=== PATIENT | male | born 1995 ===

== ENCOUNTER 2016-09-16 11:33 | Emergency (ER) | payer BC ==
[2016-09-16 11:47] VITALS: BP 143/75; PULSE 102; RESP 20; TEMP 101; O2SAT 98
--- NOTE | 2016-09-16 12:55 | ED PDOC ---
HPI: CCC, URI, Sore Throat Time Seen by Provider: 09/16/16 12:53 Chief Complaint (Nursing): Cough, Cold, Congestion Chief Complaint (Provider): cough History Per: Patient History/Exam Limitations: no limitations Onset/Duration Of Symptoms: Days (4) Current Symptoms Are (Timing): Still Present Location Of Pain: Ear(s), Throat, Sinus/es, Diffuse Myalgias, Headache Associated Symptoms: Fever, Chills, Sore Throat, Cough, Sinus Drainage, Myalgias , Nasal Congestion. denies: Sputum, Nausea, Vomiting, Diarrhea Past Medical History Reviewed: Historical Data, Nursing Documentation, Vital Signs Vital Signs: Last Vital Signs Temp 101 F H 09/16/16 11:45 Pulse 102 H 09/16/16 11:45 Resp 20 09/16/16 11:45 BP 143/75 09/16/16 11:45 Pulse Ox 98 09/16/16 13:27 - Medical History PMH: No Chronic Diseases - Family History Family History: States: No Known Family Hx - Home Medications Home Medications: Ambulatory Orders Medication Instructions Recorded Amoxicillin [Amoxil 500 mg Cap] 500 mg PO BID #20 cap 09/16/16 - Allergies Allergies/Adverse Reactions: Allergies Allergy/AdvReac Type Severity Reaction Status Date / Time No Known Allergies Allergy Verified 09/16/16 11:45 Review of Systems ROS Statement: Except As Marked, All Systems Reviewed And Found Negative Constitutional: Positive for: Fever, Chills, Malaise ENT: Positive for: Ear Pain, Nose Discharge, Nose Congestion Skin: Negative for: Rash Physical Exam - Reviewed Nursing Documentation Reviewed: Yes Vital Signs Reviewed: Yes - Physical Exam Appears: Positive for: Non-toxic, No Acute Distress, Uncomfortable Head Exam: Positive for: ATRAUMATIC, NORMAL INSPECTION, NORMOCEPHALIC Skin: Positive for: Normal Color, Warm, DRY Eye Exam: Positive for: EOMI, Normal appearance, PERRL ENT: Positive for: TM Is/Are (NAD), Pharyngeal Erythema, Tonsillar Exudate, Tonsillar Swelling. Negative for: Sinus Pain/Drainage, Nasal Congestion Cardiovascular/Chest: Positive for: Regular Rate, Rhythm Respiratory: Positive for: CNT, Normal Breath Sounds Lymphatic: Positive for: Normal Exam Neurologic/Psych: Positive for: Alert, Oriented - ECG O2 Sat by Pulse Oximetry: 98 - Progress ED Course And Treament: rapid strep and flu test. motrin for pain Medical Decision Making Medical Decision Making: strep negative however pt is with exudates and swelling to tonsils. flu is negative. pt will be d/c with amoxicillin and strongly advised to f.u with pmd VS improved. Disposition - Clinical Impression Clinical Impression: Strep pharyngitis - Patient ED Disposition Is Patient to be Admitted: No Counseled Patient/Family Regarding: Studies Performed, Diagnosis, Need For Followup, Rx Given - Disposition Disposition: Routine/Home Disposition Time: 13:30 Condition: STABLE Prescriptions: Amoxicillin [Amoxil 500 mg Cap] 500 mg PO BID #20 cap Instructions: Strep Throat in Children (ED) Forms: [facility] ED School/Work Excuse Print Language: NEPALI
== END 2016-09-16 13:59 | disposition home or self-care (01) ==
LOC: H.ER 11:33
DX: J02.0 Streptococcal pharyngitis (principal); R50.9 Fever, unspecified